=== PATIENT | male | born 1990 | race Caucasian/White ===

== ENCOUNTER → 2017-11-08 | Outpatient (CLI) | payer OTHER | LOC: M SLEEP 19:45 | DX: G47.30 Sleep apnea, unspecified (principal) ==

== ENCOUNTER → 2018-01-30 | Outpatient (REF) | payer OTHER | LOC: M SFHCADAM 13:19 | DX: Z83.2 Family history of diseases of the blood and blood-forming organs and certain disorders involving the immune mechanism (principal) ==

== ENCOUNTER 2021-07-08 19:34 | Emergency (ER) | payer OTHER ==
[~2021-07-08] VITALS: Ht 185.4 cm; Wt 81.8 kg
[2021-07-08 19:35] VITALS: BP 129/69
[2021-07-08 20:28] LABS: BASO # 0.1 10^3/uL (0.0-0.2); BASO % 1.5 % (0.0-1.0); EOS # 0.3 10^3/uL (0.0-0.5); EOS % 3.8 % (0.0-3.0); HEMATOCRIT 41.1 % (42.0-52.0); HEMOGLOBIN 13.8 g/dl (13.5-17.5); LYMPH # 2.1 10^3/uL (1.5-5.0); LYMPH % 32.1 % (24.0-44.0); MEAN CORPUSCULAR HGB CONC 33.6 g/dl (32.0-36.5); MEAN CORPUSCULAR VOLUME 89.3 fl (80.0-96.0); MONO # 0.8 10^3/uL (0.0-0.8); MONO % 12.4 % (2.0-8.0); NEUTROPHILS # 3.2 10^3/uL (1.5-8.5); NEUTROPHILS % 49.9 % (36.0-66.0); PLATELET COUNT, AUTOMATED 254 10^3/uL (150-450); WHITE BLOOD COUNT 6.5 10^3/uL (4.0-10.0)
[2021-07-08 20:52] LABS: BLOOD UREA NITROGEN 18 MG/DL (7-18); CARBON DIOXIDE LEVEL 34 MEQ/L (21-32); CHLORIDE LEVEL 104 MEQ/L (98-107); CREATININE FOR GFR 1.15 MG/DL (0.70-1.30); GLOMERULAR FILTRATION RATE > 60.0 (>60); GLUCOSE, FASTING 110 MG/DL (70-100); POTASSIUM SERUM 4.1 MEQ/L (3.5-5.1); SODIUM LEVEL 140 MEQ/L (136-145)
[2021-07-08] MEDS ORDERED: GI COCKTAIL 50ML BTL(HYOSCYAMINE/MAALOX/LIDOCAINE VISCOUS)(1:3:1) PO ONE (22:55)
[2021-07-08] MEDS ORDERED: FAMO20TA PO (23:58)
== END 2021-07-09 00:03 | disposition home or self-care (01) ==
LOC: M ED 19:34
DX: R07.89 Other chest pain (principal); I45.19 Other right bundle-branch block

== ENCOUNTER → 2021-07-20 | Outpatient (REF) | payer OTHER ==
[~2021-07-20] MED LIST: FAMO20TA PO
[2021-07-20 16:46] LABS: FREE T4 1.04 NG/DL (0.76-1.46); THYROID STIMULATING HORMONE 1.57 uIU/ML (0.358-3.740)
== END ==
LOC: M SFHCADAM 12:00
PROVIDERS: ATTEND Physician Assistant
DX: R00.2 Palpitations (principal)

== ENCOUNTER → 2021-08-10 | Outpatient (CLI) | payer OTHER | LOC: M CARPUL 09:24 | PROVIDERS: ATTEND Physician Assistant | DX: I45.10 Unspecified right bundle-branch block (principal) ==

== ENCOUNTER → 2021-11-02 | Outpatient (REF) | payer OTHER | LOC: M SFHCADAM 12:29 | PROVIDERS: ATTEND Physician Assistant | DX: R09.81 Nasal congestion (principal) ==

== ENCOUNTER → 2022-02-23 | Outpatient (CLI) | payer OTHER | LOC: M PLAIMG 15:37 | PROVIDERS: ATTEND Physician Assistant | DX: R07.81 Pleurodynia (principal) ==

== ENCOUNTER → 2022-05-24 | Outpatient (REF) | payer OTHER | LOC: M SFHCADAM 13:15 | PROVIDERS: ATTEND Physician Assistant | DX: J02.9 Acute pharyngitis, unspecified (principal) ==

== ENCOUNTER 2023-07-31 20:17 | Emergency (ER) | payer OTHER ==
[2023-07-31] MEDS ORDERED: OSEL75CA2 PO (20:32)
[2023-07-31] MEDS: IBUPROFEN 600MG TAB PO ONE (22:53)
[2023-07-31] MEDS: ACETAMINOPHEN TAB 650MG DOSE (2X325MG) PO ONE (22:53)
[2023-08-01 00:47] VITALS: TEMP 98.1
[2023-08-01 02:30] VITALS: BP 116/76
[2023-08-01 02:47] VITALS: O2SAT 96
== END 2023-08-01 03:02 | disposition home or self-care (01) ==
LOC: M ED 20:17
DX: J10.1 Influenza due to other identified influenza virus with other respiratory manifestations (principal)